=== PATIENT | female | born 1970 | race Caucasian/White ===

== ENCOUNTER 2024-07-14 20:37 | Emergency (ER) | payer OTHER ==
--- NOTE | 2024-07-14 21:09 | ED Physician Documentation ---
History of Present Illness - Stated complaint Stated Complaint: BEE STING - Chief complaint Chief Complaint: General - History obtained from History obtained from: Patient - History of Present Illness Pain level max: 0 Pain level now: 0 - Additonal information Additional information: 54-year-old female states that she was stung by a bee on her left thigh 2 days ago. She went to the walk-in clinic and was placed on Keflex. She states that the swelling and redness has gotten worse. No fevers. No chills. Described as itchy. She states similar reactions to bee stings in the past. 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 - Present Medications Home Medications: Ambulatory Orders Medication Instructions Recorded Confirmed predniSONE [Deltasone] 40 mg PO DAILY #10 tablet 07/14/24 - Allergies Allergies/Adverse Reactions: Allergies Allergy/AdvReac Type Severity Reaction Status Date / Time bee venom protein (honey bee) Allergy Rash Verified 07/14/24 20:44 - Social History Does the pt smoke?: Yes Smoking Status: Current every day smoker PD ED PE NORMAL - Vitals Vital signs reviewed: Yes - General General: Alert and oriented X 3, No acute distress - Derm Derm: Warm and dry - Extremities Extremities: Other (Left hip - Light pink erythematous area to the anterior aspect of the left proximal thigh and hip. Full range of motion without pain. Described as itchy. Blanches easily. Appears urticarial.) - Neuro Neuro: Alert and oriented X 3 Results - Vitals Vitals: Vital Signs - 24 hr 07/14/24 07/14/24 20:39 21:16 Temperature 37.3 C 37.0 C Heart Rate 101 H 88 Respiratory 16 16 Rate Blood Pressure 135/98 H 128/88 H O2 Saturation 98 100 Oxygen O2 Source Room air PD Medical Decision Making - ED course Complexity details: considered differential, d/w patient ED course: 54-year-old female with a localized allergic reaction secondary to bee sting to the left proximal thigh. No evidence of secondary infection. Will place on steroids for home. She is well-appearing, nontoxic. Afebrile. Recommend that she follow-up with her PCP for further care. She states that this is a normal allergic reaction for her to bees. No difficulty breathing, speaking or swallowing. No evidence of anaphylaxis. Patient counseled regarding signs and symptoms for which I believe and urgent re-evaluation would be necessary. Patient with good understanding of and agreement to plan and is comfortable going home at this time This document was made in part using voice recognition software. While efforts are made to proofread this document, sound alike and grammatical errors may occur. Departure - Departure Disposition: 01 Home, Self Care Clinical Impression: Allergic reaction Qualifiers: Encounter type: initial encounter Qualified Code(s): T78.40XA - Allergy, unspecified, initial encounter Condition: Good Instructions: ED Bite Sting Insect Local Allergic React Follow-Up: your,doctor as needed [Other] Prescriptions: predniSONE [Deltasone] 40 mg PO DAILY #10 tablet Comments: Your prescription was sent to [facility] in [place]. Please take all steroids until gone. Please follow-up with your doctor for further care and return if you worsen. As we discussed due to your significant allergic reactions to bee stings, you may do well with allergy shots for this. Forms: PCP List Discharge Date/Time: 07/14/24 21:16
[2024-07-14] MEDS: predniSONE 20 MG TABLET PO STA (21:15)
[2024-07-14 21:22] VITALS: BP 128/88; O2SAT 100
== END 2024-07-14 21:16 | disposition home or self-care (01) ==
LOC: ED 20:37
DX: T63.441A Toxic effect of venom of bees, accidental (unintentional), initial encounter (principal); L53.0 Toxic erythema; F17.200 Nicotine dependence, unspecified, uncomplicated
CPT/HCPCS: 99283; J7512